=== PATIENT | female | born 1990 | race Caucasian/White ===

== ENCOUNTER 2019-11-19 19:08 | Emergency (ER) | payer MEDICAID ==
[~2019-11-19] VITALS: Ht 160 cm; Wt 68.0 kg
[2019-11-19 19:15] VITALS: BP 108/68
[2019-11-19] MEDS ORDERED: PENICILLIN VK500 MG PO (20:29)
== END 2019-11-19 20:34 | disposition home or self-care (01) ==
LOC: ED 19:08
DX: K02.9 Dental caries, unspecified (principal)

== ENCOUNTER 2020-01-20 19:59 | Emergency (ER) | payer OTHER ==
[~2020-01-20] VITALS: Ht 160 cm; Wt 68.0 kg
[~2020-01-20 19:59] MED LIST: PENICILLIN VK500 MG PO
[2020-01-20 20:10] VITALS: BP 119/73
[2020-01-20] MEDS ORDERED: Motrin,Rufen800 MG PO (20:22)
[2020-01-20] MEDS ORDERED: AMOXICILLIN500 M2 PO (20:22)
== END 2020-01-20 20:26 | disposition home or self-care (01) ==
LOC: ED 19:59
DX: K08.89 Other specified disorders of teeth and supporting structures (principal)

== ENCOUNTER 2020-05-12 10:05 | Emergency (ER) | payer OTHER ==
[~2020-05-12] VITALS: Ht 160 cm; Wt 68.9 kg
[~2020-05-12 10:05] MED LIST changes: +AMOXICILLIN500 M2 PO; +Motrin,Rufen800 MG PO
[2020-05-12 10:11] VITALS: BP 113/74
[2020-05-12 10:42] LABS: BACTERIA 1+; BILIRUBIN NEGATIVE (NEGATIVE); BLOOD NEGATIVE (NEGATIVE); CLARITY CLOUDY (CLEAR); COLOR YELLOW (YELLOW); EPITHELIAL CELLS 21-30; GLUCOSE NEGATIVE (NEGATIVE); KETONE TRACE (NEGATIVE); LEUKO ESTERASE 3+ (NEGATIVE); NITRITE NEGATIVE (NEGATIVE); PH 7.5 (5.0-9.0); UROBILINOGEN 0.2 E.U./dl (0.2-1.0)
== END 2020-05-12 11:54 | disposition home or self-care (01) ==
LOC: ED 10:05
PROVIDERS: Physician Assistant
DX: Z20.2 Contact with and (suspected) exposure to infections with a predominantly sexual mode of transmission (principal); Z79.899 Other long term (current) drug therapy

== ENCOUNTER 2020-05-25 13:46 | Emergency (ER) | payer OTHER ==
[~2020-05-25] VITALS: Ht 160 cm; Wt 67.1 kg
[2020-05-25 13:53] VITALS: BP 107/72
== END 2020-05-25 15:55 | disposition home or self-care (01) ==
LOC: ED 13:46
DX: S92.251A Displaced fracture of navicular [scaphoid] of right foot, initial encounter for closed fracture (principal); S90.01XA Contusion of right ankle, initial encounter; W01.0XXA Fall on same level from slipping, tripping and stumbling without subsequent striking against object, initial encounter; Y93.89 Activity, other specified; Y92.89 Other specified places as the place of occurrence of the external cause; Y99.8 Other external cause status

== ENCOUNTER 2020-08-25 11:36 | Emergency (ER) | payer OTHER ==
[~2020-08-25] VITALS: Wt 71.7 kg
[2020-08-25 11:59] VITALS: BP 107/73
== END 2020-08-25 12:45 | disposition home or self-care (01) ==
LOC: ED 11:36
DX: U07.1 COVID-19 (principal); Z79.899 Other long term (current) drug therapy

== ENCOUNTER → 2020-09-10 | Outpatient (CLI) | payer OTHER ==
[~2020-09-10] MED LIST changes: +CEPHALEXIN500 M1 PO
== END | disposition home or self-care (01) ==
LOC: COVID19 09:36
PROVIDERS: ATTEND Family Medicine
DX: Z20.828 Contact with and (suspected) exposure to other viral communicable diseases (principal)

== ENCOUNTER 2020-10-01 10:28 | Emergency (ER) | payer OTHER ==
[~2020-10-01 10:28] MED LIST changes: -CEPHALEXIN500 M1 PO
[2020-10-01 10:36] VITALS: BP 119/63
[2020-10-01 11:26] LABS: BILIRUBIN Negative (Negative); BLOOD Negative (Negative); CLARITY Clear (Clear); COLOR Yellow (Yellow); GLUCOSE Negative (Negative); KETONE 1+ (Negative); LEUKO ESTERASE Trace (Negative); NITRITE Negative (Negative); PH 5.5 (4.5-8.0); SPECIFIC GRAVITY >= 1.030 (1.001-1.030)
[2020-10-01 11:29] LABS: BASO % 0.1 % (0.0-1.0); EOS % 0.2 % (1.0-4.0); HEMATOCRIT 38.3 % (37.0-47.0); LYMPH # 1.8 10*3/uL (1.3-4.4); LYMPH % 20.5 % (27.0-41.0); MEAN CELL VOLUME 90.3 fl (81.0-99.0); MEAN CORPUSCULAR HGB 29.2 pg (27.0-31.0); MEAN CORPUSCULAR HGB CONC 32.4 g/dl (33.0-37.0); MEAN PLATELET VOLUME 9.4 fl (9.6-12.3); MONO # 0.5 10*3/uL (0.1-1.0); MONO % 5.6 % (3.0-9.0); NEUT # 6.5 10*3/uL (2.3-7.9); NEUT % 73.3 % (47.0-73.0); PLATELET COUNT AUTOMATED 217 10*3/uL (130-400); RED BLOOD COUNT 4.24 10*6/uL (4.10-5.10); RED CELL DISTRI WIDTH 13.2 % (0-14.5); WHITE BLOOD COUNT 8.8 10*3/uL (4.8-10.8)
[2020-10-01 11:37] LABS: BACTERIA 1+; MUCOUS 1+
[2020-10-01 11:53] LABS: ALBUMIN 3.7 gm/dl (3.1-4.5); ALKALINE PHOSPHATASE 70 U/L (45-117); BUN 13 mg/dl (7-24); CHLORIDE 108 mmol/L (98-107); CREATININE 0.73 mg/dL (0.55-1.02); LIPASE 72 U/L (73-393); POTASSIUM 3.6 mmol/L (3.5-5.1); SGOT/AST 11 IU/L (3-35); SGPT/ALT 19 U/L (12-78); SODIUM 139 mmol/L (136-145); TOTAL PROTEIN 7.4 gm/dL (6.4-8.2)
[2020-10-01] MEDS ORDERED: CEPHALEXIN500 M1 PO (12:42)
== END 2020-10-01 12:48 | disposition home or self-care (01) ==
LOC: ED 10:28
PROVIDERS: Nurse Practitioner Family
DX: O23.42 Unspecified infection of urinary tract in pregnancy, second trimester (principal); Z3A.15 15 weeks gestation of pregnancy

== ENCOUNTER → 2021-09-17 | Outpatient (CLI) | payer OTHER ==
[~2021-09-17] MED LIST changes: +CEPHALEXIN500 M1 PO
== END | disposition home or self-care (01) ==
LOC: COVID19 15:33
PROVIDERS: ATTEND Podiatrist Foot & Ankle Surgery
DX: Z11.52 Encounter for screening for COVID-19 (principal)

== ENCOUNTER → 2022-05-09 | Outpatient (CLI) | payer OTHER ==
[2022-05-09 12:19] LABS: HEMATOCRIT 39.9 % (37.0-47.0); MEAN CELL VOLUME 84.4 fl (81.0-99.0); MEAN CORPUSCULAR HGB 27.3 pg (27.0-31.0); MEAN CORPUSCULAR HGB CONC 32.3 g/dl (33.0-37.0); MEAN PLATELET VOLUME 9.8 fl (9.6-12.3); RED BLOOD COUNT 4.73 10*6/uL (4.10-5.10); RED CELL DISTRI WIDTH 14.9 % (0-14.5)
[2022-05-09 12:38] LABS: BUN 13 mg/dl (7-24); CHLORIDE 109 mmol/L (98-107); CHOLESTEROL 196 mg/dL (<200); CREATININE 0.87 mg/dL (0.55-1.02); POTASSIUM 4.3 mmol/L (3.5-5.1); SGOT/AST 15 IU/L (3-35); SGPT/ALT 17 U/L (12-78); SODIUM 141 mmol/L (136-145); TOTAL PROTEIN 7.5 gm/dL (6.4-8.2); TRIGLYCERIDES 194 mg/dl (<150)
[2022-05-09 12:42] LABS: ALKALINE PHOSPHATASE 93 U/L (45-117); FREE T4 0.89 ng/dl (0.76-1.46); LDL CHOLESTEROL 115 mg/dL (9-159)
[2022-05-09 13:06] LABS: VITAMIN D, 25-HYDROXY 18.4 ng/mL (30-100)
== END | disposition home or self-care (01) ==
LOC: LAB 12:01
PROVIDERS: ATTEND Family Medicine
DX: Z00.00 Encounter for general adult medical examination without abnormal findings (principal); E55.9 Vitamin D deficiency, unspecified; R53.83 Other fatigue; E74.00 Glycogen storage disease, unspecified; F41.1 Generalized anxiety disorder

== ENCOUNTER → 2023-05-02 | Outpatient (CLI) | payer OTHER | END | disposition home or self-care (01) | LOC: US 12:21 | PROVIDERS: ATTEND Family Medicine | DX: N83.202 Unspecified ovarian cyst, left side (principal) ==

== ENCOUNTER 2025-09-01 14:44 | Emergency (ER) | payer SELFPAY ==
[~2025-09-01] VITALS: Ht 157.4 cm; Wt 65.8 kg
[2025-09-01 15:01] VITALS: BP 118/70
[2025-09-01] MEDS ORDERED: Ondansetron Hydrochloride 4 MG TAB SL ONE (15:25)
[2025-09-01] MEDS ORDERED: Acetaminophen/Oxycodone 5 MG/325 MG TABLET PO ONE (15:25)
[2025-09-01 15:34] LABS: BASO # 0.0 10*3/uL (0.0-0.1); BASO % 0.5 % (0.0-1.0); EOS # 0.1 10*3/uL (0.0-0.4); EOS % 1.3 % (1.0-4.0); MEAN CELL VOLUME 94.1 fl (81.0-99.0); MEAN CORPUSCULAR HGB 31.1 pg (27.0-31.0); MEAN PLATELET VOLUME 9.8 fl (9.6-12.3); MONO # 0.4 10*3/uL (0.1-1.0); MONO % 5.0 % (3.0-9.0); NEUT # 5.0 10*3/uL (2.3-7.9); NEUT % 62.7 % (47.0-73.0); NUCLEATED RED BLOOD CELL 0.0 % (0.0-0.0); NUCLEATED RED BLOOD CELL 0.0 10*3/uL (0.0-0.0); PLATELET COUNT AUTOMATED 217 10*3/uL (130-400); RED CELL DISTRI WIDTH 12.8 % (0-14.5)
[2025-09-01 15:57] LABS: BUN 13 mg/dl (9-23); SGPT/ALT 12 U/L (5-49)
[2025-09-01 16:02] LABS: BILIRUBIN Negative (Negative); CLARITY Clear (Clear); COLOR Yellow (Yellow); KETONE Negative (Negative); SPECIFIC GRAVITY 1.015 (1.001-1.030)
[2025-09-01 16:03] LABS: LEUKO ESTERASE Trace (Negative); NITRITE Negative (Negative); PH 6.5 (4.5-8.0); UROBILINOGEN 0.0 E.U./dl (0.0-1.0)
[2025-09-01 16:04] LABS: BACTERIA 3+
[2025-09-01 16:09] LABS: BLOOD Trace-Lysed (Negative)
[2025-09-01] MEDS ORDERED: CEPHALEXIN500 M1 PO (16:44)
[2025-09-01] MEDS ORDERED: CEPHALEXIN 500 MG CAP PO ONE (16:45)
== END 2025-09-01 17:18 | disposition home or self-care (01) ==
LOC: ED 14:44
PROVIDERS: Nurse Practitioner Family
DX: N39.0 Urinary tract infection, site not specified (principal)

== ENCOUNTER → 2025-09-22 | Outpatient (CLI) | payer OTHER | END | disposition home or self-care (01) | LOC: US 00:40 | PROVIDERS: ATTEND Obstetrics & Gynecology Obstetrics | DX: N83.202 Unspecified ovarian cyst, left side (principal); R10.20 Pelvic and perineal pain unspecified side ==